=== PATIENT | female | born 1935 | race Caucasian/White ===

== ENCOUNTER 2016-11-26 12:39 | Inpatient (IN) | payer OTHER ==
[~2016-11-26] VITALS: Ht 167.6 cm; Wt 91.6 kg
--- NOTE | ~2016-11-26 | 2DMMODE ---
[facility] [address] [facility] [place] [address] 2 D/M-MODE ECHOCARDIOGRAM Name: VESTAMIKALAINEY Room #: 449-I [facility] IN .R.#: [id number] Admission: 11/26/16 Attend Phys: Ilya Zuleta, Discharge: Date of : 39 Date of Service: 11/27/16 1329 Report #: [id number] THIS REPORT FOR: //name// APPROVED REPORT Study performed: 11/27/2016 11:59:55 EXAM: Comprehensive 2D, Doppler, and color-flow Echocardiogram Patient Location: Bedside Room #: [facility] Status: routine Other Information Study Quality: Adequate Indications Congestive Heart Failure Dyspnea Atrial Fibrillation Hypertension/HDD 2D Dimensions RVDd: 42.26 mm LVEF(%): 39.89 (>50%) IVSd: 13.65 (7-11mm) LVOT Diam: 18.88 (18-24mm) LVDd: 53.28 mm PWd: 13.85 (7-11mm) Ascending Ao: 30.53 (22-36mm) LVDs: 42.84 (25-40mm) Aortic Root: 26.27 mm IVC: 21.00 mm Adams's LVEF: 39.89 % Volumes Left Atrial Volume (Systole) Single Plane 4CH: 93.48 mL Single Plane 2CH: 53.88 mL LA ESV Index: 40.00 mL/m2 Aortic Valve AoV Peak Tyler.: 2.11 m/s AO Peak Gr.: 17.80 mmHg LVOT Max P.62 mmHg AO Mean Gr.: 9.27 mmHg LVOT Mean P.53 mmHg AO V2 Mean: 1.40 m/s LVOT Max V: 1.07 m/s AO V2 VTI: 40.19 cm LVOT Mean V: 0.74 m/s TYRELL (VTI): 1.66 cm2 LVOT V1 VTI: 23.87 cm TYRELL Vmax: 1.43 cm2 SV (LVOT): 66.83 mL [facility] [address] [place] [address] 2 D/M-MODE ECHOCARDIOGRAM Name: SINDYLAINEY Room #: 449-I [facility] IN ..#: [id number] Admission: 11/26/16 Attend Phys: Ilya Zuleta, Discharge: Date of : 39 Date of Service: 11/27/16 1329 Report #: [id number] Mitral Valve E/A Ratio: 1.6 MV Decel. Time: 115.12 ms MV E Max Tyler.: 1.20 m/s MV A Tyler.: 0.75 m/s MV PHT: 33.38 ms IVRT: 87.66 ms Pulmonary Valve PV Peak Tyler.: 1.58 m/s PV Peak Gr.: 13.01 mmHg Pulmonary Vein P Vein S: 0.17 m/s P Vein A: 0.25 m/s P Vein D: 0.49 m/s P Vein A Dur.: 115.3 msec P Vein S/D Ratio: 0.35 Tricuspid Valve TR Peak Tyler.: 3.20 m/s RAP Estimate: 10.00 mmHg TR Peak Gr.: 40.97 mmHg PA Pressure: 51.00 mmHg Left Ventricle The left ventricle is normal size. Mild concentric left ventricular hypertrophy. Left ventricular systolic function is borderline. LVEF is 50-55%. This study is not technically sufficient to allow evaluation of the LV diastolic function. Right Ventricle Right ventricle is at the upper limits of normal. The right ventricular systolic function is normal. Atria Left atrium is dilated. Right atrium is dilated. Aortic Valve The aortic valve is normal in structure. Aortic valve is calcified. Trace aortic regurgitation. Mild aortic stenosis. Mitral Valve The mitral valve is normal in structure. Mild to moderate mitral regurgitation. No evidence of mitral valve stenosis. Tricuspid Valve The tricuspid valve is normal in structure. There is mild tricuspid regurgitation. The right atrial pressure is estimated at 10 mmHg. There is moderate pulmonary hypertension. The estimated PAP was 51 [facility] [address] [place] [address] 2 D/M-MODE ECHOCARDIOGRAM Name: LAINEY CALLAHAN Room #: 449-I ADM IN M.R.#: [id number] Admission: 11/26/16 Attend Phys: Ilya Zuleta, Discharge: Date of : 39 Date of Service: 11/27/16 1329 Report #: [id number]. Pulmonic Valve The pulmonary valve is normal in structure. Trace pulmonic regurgitation. Great Vessels The aortic root is normal in size. IVC is dilated and collapses >50% with inspiration. Pericardium Trace pericardial effusion. <Conclusion> The left ventricle is normal size. LVEF is 50-55%. Left atrium is dilated. Right atrium is dilated. The aortic valve is normal in structure. Aortic valve is calcified. Trace aortic regurgitation. Mild aortic stenosis. The mitral valve is normal in structure. Mild to moderate mitral regurgitation. The tricuspid valve is normal in structure. There is mild tricuspid regurgitation. The right atrial pressure is estimated at 10 mmHg. There is moderate pulmonary hypertension. The estimated PAP was 51 mmHg. <ELECTRONICALLY SIGNED> By: Mohit Ledezma MD 11/27/16 1329 1329 1329 Mohit Ledezma MD /INF
--- NOTE | ~2016-11-26 | H ---
[facility] [place] [address] HISTORY AND PHYSICAL Name: LAINEY CALLAHAN Room #: 449-I ADM IN M.R.#: [id number] Admission: 11/26/16 Attend Phys: Ilya Zuleta MD Discharge: Date of : 39 Report #: [id number] THIS REPORT FOR: //name// CC: Ilya Zuleta DATE OF SERVICE: 11/27/2016 CHIEF COMPLAINT: Shortness of air. HISTORY OF PRESENT ILLNESS: The patient is a 81-year-old female well known to me who presents since she is having increasing shortness of air over the past several days, had difficulty laying flat and was more short of breath. She was unable to lay flat in the . She has had some sharp pain and feeling her heart fluttering. She has no prior history of irregular heartbeats. She does have a murmur she reports. PAST MEDICAL HISTORY: Significant for: 1. Diabetes mellitus. 2. Hypertension. 3. Breast cancer with mastectomy. 4. Hypothyroidism. 5. Venous insufficiency with vein stripping. 6. Recurrent breast cancer in 2008. 7. Hyperlipidemia. MEDICATIONS: Fish oil daily, melatonin 10 mg at bedtime, aspirin 81 mg a day, lisinopril 20 mg a day, simvastatin 40 mg a day, Synthroid 88 mcg a day, trazodone 50 mg a day, Tylenol No. 3 p.r.n., insulin, Levemir at bedtime and NovoLog sliding scale. ALLERGIES: ROXICODONE. SOCIAL HISTORY: Nonsmoker, occasional alcohol. No recreational drugs. She is , lives independently. REVIEW OF SYSTEMS: CONSTITUTIONAL: No fevers or chills, but she does feel weak. HEENT: No headache or visual changes. CHEST: Has shortness of air, no significant cough or sputum production. GASTROINTESTINAL: No nausea, vomiting, diarrhea or constipation. GENITOURINARY: No burning or frequency. EXTREMITIES: No new joint pain. 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 NEUROLOGIC: No new numbness or weakness. PHYSICAL EXAMINATION: [facility] [address] [place] [address] HISTORY AND PHYSICAL Name: LAINEY CALLAHAN Room #: 449-I ADM IN [facility]#: [id number] Admission: 11/26/16 Attend Phys: Ilya Zuleta MD Discharge: Date of : 37 Report #: [id number] VITAL SIGNS: Blood pressure in the ER 166/95, her pulse was 70, but her initial presentation EKG rate was higher, her pulse now is 80. She is afebrile. O2 sat was 95% on 2 liters. GENERAL: She is awake and alert and feels much better, much more short of breath this morning, she is sitting upright. She is on nasal oxygen. HEENT: Her mucous membranes are moist. NECK: Supple, without adenopathy, thyromegaly or bruits. CHEST: Shows left basilar crackles. CARDIOVASCULAR: Irregular rhythm with the rate in the 80s, no S4. There is a 2/6 systolic ejection murmur. ABDOMEN: Soft, nondistended, nontender, no masses. Bowel sounds are active. EXTREMITIES: She has 3+ edema in the left and 1+ in the right. Motor is grossly intact. Sensory is grossly intact. MUSCULOSKELETAL: No new joint swellings or tenderness. LABORATORY DATA: Her EKG showed AFib with a rate of 95, which was new compared to the one in 2009. Sodium 146, potassium 3.0, chloride 106, bicarbonate 32, BUN 26, creatinine 1.4, glucose 119. Troponin 0.2. BNP 25,750, WBCs 8.0, hemoglobin 12.7, hematocrit 37.5, platelet count 151, 64 segs, 22 lymphs, 10 monocytes. Chest x-ray shows bibasilar atelectasis with some infiltrates, small effusions which is new and she has a persistent left basilar infiltrate. ASSESSMENT: 1. New onset atrial fibrillation, rate is already improved, we will continue with the Cardizem, switching to p.o.; however, today as her rate got too low on the drip last night had to be turned off, but will likely need an echocardiogram, Cardiology has been consulted, discussed anticoagulation, we will place her on Eliquis for now. 2. Acute congestive heart failure, systolic, due to the atrial fibrillation, given her IV Lasix will do b.i.d. for today, monitor her electrolytes. She seems to be improving. She does have a chronic edema. 3. Chronic edema, left and right legs get bilateral venous Dopplers. 4. Mild acute kidney injury. We will monitor her electrolytes and renal function. 5. Diabetes mellitus, insulin requiring, will continue her insulin. 6. Hypothyroidism. Continue her thyroid replacement. 7. Insomnia. Continue her trazodone. 8. Degenerative arthritis. Continue the Tylenol with codeine p.r.n. 9. Hyperlipidemia, will hold on simvastatin until discharge, mostly just for convenience for her. 10. Debility. We will get PT and OT. I suspect she will need intermediate on discharge from the acute care in light of the fact she lives independently. She has significant arthritis, has recent surgery on her foot and now has a [facility] [address] [place] [address] HISTORY AND PHYSICAL Name: LAINEY CALLAHAN Room #: 449-I ADM IN .R.#: [id number] Admission: 11/26/16 Attend Phys: Ilya Zuleta MD Discharge: Date of : 39 Report #: [id number] shortness of air, requiring oxygen which she did not need before. The patient is a full code and I have discussed all of the findings with the patient. By: [id number] Ilya Zuleta MD /nt
--- NOTE | ~2016-11-26 | EKG ---
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 ULLOA : 1935 Requested By: Ad Garcia Order Number: [id number] MD: Michel Ovalles Measurements Intervals [place] Rate: 95 P: [place]: QRS: -15 QRSD: 107 T: 153 QT: 363 QTc: 457 Interpretive Statements Atrial fibrillation Ventricular premature complex LVH with secondary repolarization abnormality Compared to ECG 08/27/2008 14:25:30 Ventricular premature complex(es) now present Left ventricular hypertrophy now present Early repolarization now present Sinus rhythm no longer present Electronically Signed On 11-26-2016 21:01:29 CDT by Michel Ovalles [email or web address] <ELECTRONICALLY SIGNED> By: Michel Ovalles MD 11/26/16 2101 1345 1345 Michel Ovalles MD /EPI
--- NOTE | ~2016-11-26 | D ---
[facility] [place] [address] [place] [address] DISCHARGE SUMMARY Name: LAINEY CALLAHAN Room #: 449-I ADM IN M.R.#: [id number] Admission: 11/26/16 Attend Phys: Ilya Zuleta MD Discharge: Date of : 37 Report #: [id number] THIS REPORT FOR: //name// CC: Ilya Zuleta DATE OF DISCHARGE: 12/01/2016. ADMIT DIAGNOSES: New onset atrial fibrillation and dyspnea. DISCHARGE DIAGNOSES: 1. New onset atrial fibrillation. 2. Acute congestive heart failure, second atrial fibrillation 3. Chronic recurrent pleural effusions. 4. Hypertension. 5. Hyperlipidemia. 6. Diabetes mellitus, insulin requiring. 7. Hypothyroidism. 8. Chronic edema. HOSPITAL COURSE: The patient was admitted with new onset shortness of air, found to be in AFib. She was admitted, started on IV Cardizem. Rate was controlled pretty quickly, was switched to oral. She continued to have dyspnea. Cardiology was consulted, we started her on Eliquis as well for stroke prevention. The patient continued to have dyspnea, a VQ scan was ordered and was negative for PE, she does have chronic effusions. She did diurese with Lasix and was much better regarding her dyspnea. She was weak; however, regarding her overall status and felt to be a good candidate for longterm. She was transferred on the for longterm to PT and OT. Her meds are per the discharge medication list. She will be seen in followup by me in 2 weeks, sooner if any issues arise. She will be on a diabetic diet and PT and OT at [facility]. By: 0714 1155 Ilya Zuleta MD /nt
[2016-11-26 12:39] VITALS: BP 166/95
[2016-11-26 14:30] LABS: ABSOLUTE NEUTROPHILS 5.2 thou/uL (1.4-8.2); EOSINOPHILS 2.2 % (0.0-3.0); HEMATOCRIT 37.5 % (37.0-47.0); HEMOGLOBIN 12.7 gm/dL (12.0-15.0); LYMPHOCYTES 22.7 % (24.0-44.0); MCH 31.8 pg (26.0-34.0); MCHC 33.8 g/dL (28.0-37.0); MONOCYTES 9.9 % (1.0-8.0); PLATELET COUNT 151 thou/uL (150-400); POLYS 64.2 % (36.0-66.0); RBC 3.99 mil/uL (4.20-5.00); RDW 13.5 % (10.5-14.5)
[2016-11-26 14:33] LABS: MANUAL DIFF NO
[2016-11-26 14:40] LABS: CALCIUM 8.8 mg/dL (8.5-10.1); CREATININE 1.4 mg/dL (0.6-1.0)
[2016-11-26 14:52] LABS: TROPONIN-I 0.2 ng/mL (<0.04-0.07)
[2016-11-26] MEDS ORDERED: FISH OIL 1,001000 M2 PO (15:09)
[2016-11-26] MEDS ORDERED: MELATONIN5 M1 PO (15:09)
[2016-11-26] MEDS ORDERED: PRINIVIL20 MG PO (15:09)
[2016-11-26] MEDS ORDERED: ASPIR 8181 MG PO (15:09)
[2016-11-26] MEDS ORDERED: SIMVASTATIN40 MG PO (15:10)
[2016-11-26] MEDS ORDERED: TRAZODONE HCL50 MG PO (15:10)
[2016-11-26] MEDS ORDERED: LEVOTHYROXIN0.088 MG PO (15:10)
[2016-11-26] MEDS ORDERED: ACETAMINOPHEN-1 EAC1 PO (15:10)
[2016-11-26] MEDS ORDERED: NOVOLOG100 UNIT/1 SUBQ (15:10)
[2016-11-26] MEDS ORDERED: LEVEMIR SUBQ (15:11)
[2016-11-26 15:53] VITALS: BP 166/80
[2016-11-26 20:00] VITALS: BP 150/65
[2016-11-26 23:41] VITALS: BP 157/63
[2016-11-27 03:18] VITALS: BP 152/68
[2016-11-27 07:16] VITALS: BP 149/91
[2016-11-27 11:10] VITALS: BP 167/80
[2016-11-27 15:21] VITALS: BP 186/91
[2016-11-27 21:08] VITALS: BP 150/79
[2016-11-28 06:12] LABS: CALCIUM 8.2 mg/dL (8.5-10.1); CREATININE 1.5 mg/dL (0.6-1.0); POTASSIUM 3.1 mmol/L (3.5-5.1)
[2016-11-28 06:42] VITALS: BP 131/54
[2016-11-28 15:56] VITALS: BP 151/49
[2016-11-28 19:07] VITALS: BP 161/58
[2016-11-28 20:36] VITALS: BP 134/66
[2016-11-29 04:39] VITALS: BP 144/63
[2016-11-29 07:41] VITALS: BP 149/62
[2016-11-29 11:02] LABS: CALCIUM 8.1 mg/dL (8.5-10.1); CREATININE 1.6 mg/dL (0.6-1.0); POTASSIUM 3.8 mmol/L (3.5-5.1)
[2016-11-29 11:26] VITALS: BP 132/38
[2016-11-29 16:02] VITALS: BP 152/71
[2016-11-29 22:08] VITALS: BP 163/108
[2016-11-30 05:40] VITALS: BP 150/59
[2016-11-30 08:00] VITALS: BP 150/57
[2016-11-30 08:06] LABS: CALCIUM 8.2 mg/dL (8.5-10.1); CREATININE 1.7 mg/dL (0.6-1.0); MAGNESIUM 1.8 mg/dL (1.8-2.4); POTASSIUM 4.2 mmol/L (3.5-5.1)
[2016-11-30 16:05] VITALS: BP 131/100
[2016-11-30 20:09] VITALS: BP 178/61
[2016-12-01 04:11] VITALS: BP 164/61
[2016-12-01 06:14] LABS: CALCIUM 8.2 mg/dL (8.5-10.1); CREATININE 1.7 mg/dL (0.6-1.0); POTASSIUM 4.2 mmol/L (3.5-5.1)
[2016-12-01] MEDS ORDERED: ALBUTEROL2.5 MG/0.5 INH (07:06)
[2016-12-01] MEDS ORDERED: ELIQUIS2.5 MG PO (07:06)
[2016-12-01] MEDS ORDERED: CARDIZEM CD240 MG PO (07:07)
[2016-12-01 10:06] VITALS: BP 185/95
[2016-12-01 11:31] VITALS: BP 175/96
== END 2016-12-01 13:48 | DRG 308 ==
LOC: ER 12:39 → 4W 15:19 → EROBS 15:19 → 4W 16:15
PROVIDERS: Emergency Medicine; Family Medicine; Internal Medicine
DX: I48.0 Paroxysmal atrial fibrillation (principal); I50.41 Acute combined systolic (congestive) and diastolic (congestive) heart failure; N17.9 Acute kidney failure, unspecified; I11.0 Hypertensive heart disease with heart failure; E11.9 Type 2 diabetes mellitus without complications; E03.9 Hypothyroidism, unspecified; E78.00 Pure hypercholesterolemia, unspecified; E78.5 Hyperlipidemia, unspecified; G47.00 Insomnia, unspecified; M19.90 Unspecified osteoarthritis, unspecified site; I27.2 Other secondary pulmonary hypertension; T50.2X5A Adverse effect of carbonic-anhydrase inhibitors, benzothiadiazides and other diuretics, initial encounter; Y92.89 Other specified places as the place of occurrence of the external cause; Z90.710 Acquired absence of both cervix and uterus; Z90.13 Acquired absence of bilateral breasts and nipples; Z85.3 Personal history of malignant neoplasm of breast; Z92.21 Personal history of antineoplastic chemotherapy; Z79.82 Long term (current) use of aspirin; Z79.4 Long term (current) use of insulin; Z79.899 Other long term (current) drug therapy; Z88.8 Allergy status to other drugs, medicaments and biological substances
CPT/HCPCS: 10045; 27001

== ENCOUNTER → 2016-12-24 | Outpatient (CLI) | payer OTHER ==
[~2016-12-24] MED LIST: ACETAMINOPHEN-1 EAC1 PO; ALBUTEROL2.5 MG/0.5 INH; ASPIR 8181 MG PO; CARDIZEM CD240 MG PO; ELIQUIS2.5 MG PO; FISH OIL 1,001000 M2 PO; LEVEMIR SUBQ; LEVOTHYROXIN0.088 MG PO; MELATONIN5 M1 PO; NOVOLOG100 UNIT/1 SUBQ; PRINIVIL20 MG PO; SIMVASTATIN40 MG PO; TRAZODONE HCL50 MG PO
== END ==
LOC: HYPER 07:11
DX: L89.152 Pressure ulcer of sacral region, stage 2 (principal); E11.622 Type 2 diabetes mellitus with other skin ulcer; L98.491 Non-pressure chronic ulcer of skin of other sites limited to breakdown of skin; E11.51 Type 2 diabetes mellitus with diabetic peripheral angiopathy without gangrene; I11.0 Hypertensive heart disease with heart failure; I50.9 Heart failure, unspecified; E78.5 Hyperlipidemia, unspecified; M81.0 Age-related osteoporosis without current pathological fracture; E03.9 Hypothyroidism, unspecified; I89.0 Lymphedema, not elsewhere classified; Z98.49 Cataract extraction status, unspecified eye; Z89.421 Acquired absence of other right toe(s); Z96.659 Presence of unspecified artificial knee joint; Z87.891 Personal history of nicotine dependence; Z72.89 Other problems related to lifestyle; Z85.3 Personal history of malignant neoplasm of breast

== ENCOUNTER 2021-01-21 14:00 | Inpatient (IN) | payer OTHER ==
[~2021-01-21] VITALS: Ht 167.6 cm; Wt 72.6 kg
[2021-01-21 14:17] VITALS: BP 154/56
[2021-01-21 14:24] LABS: HEMOGLOBIN 11.4 gm/dL (12.0-15.0); MCH 30.4 pg (26.0-34.0); MCHC 32.6 g/dL (28.0-37.0); MCV 93.2 fL (80.0-100.0); PLATELET COUNT 280 thou/uL (150-400); RBC 3.75 mil/uL (4.20-5.00); RDW 13.9 % (10.5-14.5); WBC 20.2 thou/uL (4.0-11.0)
[2021-01-21 14:36] LABS: ANION GAP 6 mmol/L (7-16); BUN 88 mg/dL (7-18); CALCIUM 8.2 mg/dL (8.5-10.1); CHLORIDE 105 mmol/L (98-107); CO2 29 mmol/L (21-32); CREATININE 2.8 mg/dL (0.6-1.0); GLUCOSE 175 mg/dL (74-106); POTASSIUM 4.2 mmol/L (3.5-5.1); SODIUM 140 mmol/L (136-145)
--- NOTE | 2021-01-21 14:42 | EKG ---
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 : 1935 Requested By: Milad Mathur Order Number: [id number] MD: Molina Orona Measurements Intervals [place] Rate: 79 P: [place]: 285 QRS: -16 QRSD: 111 T: 89 QT: 409 QTc: 469 Interpretive Statements Atrial-paced complexes Prolonged [place] interval Low voltage, extremity leads Compared to ECG 11/26/2016 13:45:47 First degree AV block now present Low QRS voltage now present Atrial fibrillation no longer present Ventricular premature complex(es) no longer present Left ventricular hypertrophy no longer present Early repolarization no longer present Electronically Signed On 01-21-2021 14:42:39 CDT by Molina Orona [email or web address] <ELECTRONICALLY SIGNED> By: Molina Orona MD, [facility] 01/21/21 1442 1403 1403 Molina Orona MD, [facility] /EPI
[2021-01-21 14:45] LABS: ALBUMIN 1.8 g/dL (3.4-5.0); LIPASE 84 U/L (73-393); SGOT 31 U/L (15-37); SGPT 23 U/L (14-59); TOTAL BILIRUBIN 0.6 mg/dL (0.2-1.0); TOTAL PROTEIN 5.3 g/dL (6.4-8.2); TROPONIN-I <0.06 ng/mL (<0.06)
[2021-01-21 14:49] LABS: ABSOLUTE NEUTROPHILS 18.8 thou/uL (1.4-8.2)
[2021-01-21 14:50] LABS: PLATELET ESTIMATE NORMAL
[2021-01-21 15:59] LABS: URINE BILIRUBIN NEGATIVE (Negative); URINE BLOOD 2+ (Negative); URINE CLARITY SL CLOUDY; URINE COLOR YELLOW; URINE GLUCOSE-RANDOM* NEGATIVE (Negative); URINE KETONES NEGATIVE (Negative); URINE PROTEIN (DIPSTICK) NEGATIVE (Negative); URINE UROBILINOGEN 0.2 E.U./dl (0.2-1.0)
[2021-01-21 16:07] LABS: URINE LEUKOCYTES-REFLEX 2+ (Negative); URINE NITRITE-REFLEX POSITIVE (Negative)
[2021-01-21 16:19] LABS: CASTS None Seen /LPF (None Seen); SQUAMOUS 0-3 Few /LPF (0-3); URINE WBC-REFLEX >25 Many /HPF (0-5)
[2021-01-21 16:20] LABS: AMORPHOUS URATES Many /LPF (None Seen)
--- NOTE | 2021-01-21 17:30 | NUR ---
86 year old female presenting to the ED with complaints of left sided chest pain that worsens with exertion and deep breaths. While in the ED patient found to be negative Covid and reports vaccination. Patient admitted with CHF and UTI. Patient currently resides at [facility] and lists daughter Rosy Bruno as her next of kin and can be reached at [phone]. Upon last admission in 2017 Dr. Zuleta had been listed as the patients PCP. CM will follow for discharge needs upon medical evaluation and plan of care has been established.
[2021-01-21 19:56] VITALS: BP 151/58
[2021-01-21 20:45] VITALS: BP 120/50
[2021-01-22 03:24] LABS: ABSOLUTE NEUTROPHILS 16.4 thou/uL (1.4-8.2); LYMPHOCYTES 5.7 % (24.0-44.0); MCH 31.1 pg (26.0-34.0); MCHC 33.4 g/dL (28.0-37.0); MCV 93.1 fL (80.0-100.0); MONOCYTES 4.3 % (1.0-8.0); PLATELET COUNT 249 thou/uL (150-400); RBC 3.23 mil/uL (4.20-5.00); RDW 14.1 % (10.5-14.5); WBC 18.6 thou/uL (4.0-11.0)
[2021-01-22 04:04] LABS: ALBUMIN 1.7 g/dL (3.4-5.0); CALCIUM 7.5 mg/dL (8.5-10.1); CREATININE 2.5 mg/dL (0.6-1.0); POTASSIUM 4.8 mmol/L (3.5-5.1); TOTAL BILIRUBIN 0.5 mg/dL (0.2-1.0); TOTAL PROTEIN 4.6 g/dL (6.4-8.2)
[2021-01-22 04:45] VITALS: BP 136/54
[2021-01-22 08:35] VITALS: BP 132/49
--- NOTE | 2021-01-22 11:19 | NUR ---
Nutrition: consult for "wounds," pt noted to have abrasions. Pt admit with chest pain, Dx: VIANCA, UTI. Other hx: CKD, A-fib, HTN, DM. Pt noted to be A/O x 1, unavailable for interview this am. Nsg reported pt ate well at breakfast, intake est 75%, no concerns reported. No wt hx available. BUN 87, Cr 2.5, albumin 1.7. IVF and other meds reviewed. Pt does not appear at significant nutrition risk at this time.
[2021-01-22 11:25] VITALS: BP 131/45
--- NOTE | 2021-01-22 12:47 | NUR ---
FAXED CLINICAL UPDATES TO [facility]. WILL CONFIRM THEY RECEIVED. [place] P [phone]; FAX [phone]
[2021-01-22 15:24] VITALS: BP 136/45
--- NOTE | 2021-01-22 15:34 | 2DMMODE ---
[facility] [place] [address] 2 D/M-MODE ECHOCARDIOGRAM Name: LAINEY CALLAHAN Room #: 209-P ADM IN M.R.#: [id number] Admission: 01/21/21 Attend Phys: Du Andrade MD Discharge: Date of : 37 Report #: [id number] THIS REPORT FOR: cc: LOUISA OLIVAS Physician not on staff Mohit Ledezma MD ~ APPROVED REPORT Study performed: 01/22/2021 14:31:50 EXAM: Comprehensive 2D, Doppler, and color-flow Echocardiogram Patient Location: Bedside Room #: 209 Status: routine BSA: 1.85 HR: 64 bpm BP: 131/45 mmHg Rhythm: NSR Other Information Study Quality: Technically Limited/poor apical windows. Technically limited study due to patient unable to move left arm for apical window.. Indications Chronic Afib, CHF, chest pain. Hx: , HTN, HLP, DM, left mastectomy. 2D Dimensions IVSd: 12.59 (7-11mm) LVOT Diam: 18.86 (18-24mm) LVDd: 60.57 mm PWd: 9.43 (7-11mm) Ascending Ao: 33.85 (22-36mm) LVDs: 50.95 (25-40mm) Left Atrium: 50.03 (27-40mm) Aortic Root: 27.56 mm Aortic Valve AoV Peak Tyler.: 2.26 m/s AO Peak Gr.: 20.35 mmHg LVOT Max P.21 mmHg AO Mean Gr.: 7.84 mmHg AO V2 Mean: 1.28 m/s LVOT Max V: 0.74 m/s AO V2 VTI: 43.21 cm TYRELL Vmax: 0.92 cm2 [facility] [email or web address] [place] [address] 2 D/M-MODE ECHOCARDIOGRAM Name: LAINEY CALLAHAN Room #: 209-P [facility] IN ..#: [id number] Admission: 01/21/21 Attend Phys: Du Andrade MD Discharge: Date of : 37 Report #: [id number] Mitral Valve E/A Ratio: 1.9 MV Decel. Time: 152.81 ms MV E Max Tyler.: 0.90 m/s MV A Tyler.: 0.48 m/s MV PHT: 44.31 ms Pulmonary Valve PV Peak Tyler.: 1.03 m/s PV Peak Gr.: 4.20 mmHg Tricuspid Valve TR Peak Tyler.: 3.05 m/s RAP Estimate: 8.00 mmHg TR Peak Gr.: 37.15 mmHg PA Pressure: 45.00 mmHg Left Ventricle Left ventricle is mildly dilated. Mild concentric left ventricular hypertrophy. Left ventricular systolic function is moderately decreased. LVEF is 35-40%. Right Ventricle Right ventricle is not well visualized. Atria Biatrial enlargement. Aortic Valve Aortic valve is trileaflet; thickened and calcified. Mild aortic regurgitation. Moderate aortic stenosis. Mitral Valve The mitral valve is normal in structure. There is mitral annular calcification. Moderate to severe mitral regurgitation Tricuspid Valve The tricuspid valve is normal in structure. Mild tricuspid regurgitation. Estimated PAP is 45mmHg. Pulmonic Valve The pulmonary valve is normal in structure. Trace pulmonic regurgitation. Great Vessels The aortic root is normal in size. IVC is normal in size and partially collapses with inspiration. [facility] [email or web address] [place] [address] 2 D/M-MODE ECHOCARDIOGRAM Name: NILSARICKYLAINEY Room #: 209-P [facility] IN M.R.#: [id number] Admission: 01/21/21 Attend Phys: Du Andrade MD Discharge: Date of : 37 Report #: [id number] Pericardium Small pericardial effusion. Bilateral pleural effusions. <Conclusion> Left ventricle is mildly dilated. Mild concentric left ventricular hypertrophy. LVEF is 35-40%. Right ventricle is not well visualized. Biatrial enlargement. Aortic valve is trileaflet; thickened and calcified. Mild aortic regurgitation. The mitral valve is normal in structure. There is mitral annular calcification. Moderate to severe mitral regurgitation The tricuspid valve is normal in structure. Mild tricuspid regurgitation. Estimated PAP is 45mmHg. The pulmonary valve is normal in structure. Trace pulmonic regurgitation. The aortic root is normal in size. Small pericardial effusion. Bilateral pleural effusions. <ELECTRONICALLY SIGNED> By: Mohit Ledezma MD 01/22/21 1534 1534 1534 Mohit Ledezma MD /INF
--- NOTE | 2021-01-22 17:11 | NUR ---
Patient sleeping. Patient admits from [facility]. Called and sp with dtr in law and reviewed role of casemgt. Attempted to confirm plan for return to [facility] but dtr in law reports to call her . Left message with spouse. Sp with Ezio who reports family/patient was in process of meeting with [facility]. Updated cristy Holguin following.
[2021-01-22 19:44] VITALS: BP 135/60
--- NOTE | 2021-01-22 20:00 | NUR ---
ASSESSMENT CHARTED . MEDS PER AUG - NO CO'S OF PAIN OR NAUSEA. PT ON BEDREST - IS NON AMBULATORY AND THE FACILTIY USES A LIFT TO GET PT UP. PT WITH ODEMA TO UPPER EXTREMITIES CHARTED - MEPILEX DRESSING REPLACED TO DRY AREA ON LEFT HEEL. PT HOLLI DIET AND FLUIDS. SEEN BY PHYS AND OCC THERAPY TODAY. PT WITH NO CO'S AT THE PRESENT TIME.
[2021-01-23 04:10] VITALS: BP 149/50
[2021-01-23 08:03] VITALS: BP 140/62
[2021-01-23 09:34] LABS: ALBUMIN 1.9 g/dL (3.4-5.0); CALCIUM 8.5 mg/dL (8.5-10.1); CREATININE 2.5 mg/dL (0.6-1.0); PHOSPHORUS 4.3 mg/dL (2.6-4.7); POTASSIUM 4.2 mmol/L (3.5-5.1)
[2021-01-23 09:38] LABS: BASOPHILS 0.8 % (0.0-2.0); EOSINOPHILS 1.8 % (0.0-3.0); HEMATOCRIT 33.7 % (37.0-47.0); LYMPHOCYTES 6.7 % (24.0-44.0); MCH 30.7 pg (26.0-34.0); MCHC 32.6 g/dL (28.0-37.0); MCV 94.3 fL (80.0-100.0); MONOCYTES 5.8 % (1.0-8.0); PLATELET COUNT 263 thou/uL (150-400); POLYS 84.9 % (36.0-66.0); RBC 3.58 mil/uL (4.20-5.00); RDW 13.9 % (10.5-14.5); WBC 16.5 thou/uL (4.0-11.0)
--- NOTE | 2021-01-23 10:57 | NUR ---
WOUND CONSULT; THIS PATIENT HAS AN UNSTAGABLE PRESSURE INJURY TO THE SACRUM THAT MEASURES 4 X 4 X 0. UNSTABLE ESCHAR PRESENT. NO ODOR SOME PAIN FOR THE PATIENT. RECCOMMENDATIONS; -ADD A LOW AIRLOSS PUMP. -APPLY A SACRAL FOAM FOR NOW UNTIL ASSESSED BY DR MENSAH. -TURN Q2H/PRN RN PRESENT
[2021-01-23 11:14] VITALS: BP 128/41
[2021-01-23 15:24] VITALS: BP 129/43
--- NOTE | 2021-01-23 15:30 | NUR ---
FAXED CLINICAL UPDATES, DNR FORM AND NEGATIVE COVID RESULT (01/21/21) TO [facility]. WILL CONTACT MAYO/LIAISON TO CONFIRM THEY RECEIVED AND NEED ANY ADDITIONAL INFORMATION. [facility] P [phone]; FAX [phone]; M [phone]
--- NOTE | 2021-01-23 16:05 | NUR ---
Spoke with patient son. He reports patient is a DNR and requests [facility] fax DNR form. Requested form and placed on chart. Son reports they met with [facility] hospice day before admission to hospital. They plan to have hospice at al when return to [facility]. Rec order for hospice eval and tx. Sp with Dedrick with [facility] hospice who will visit with patient in am. She confirms they met prior to admission. clinical faxed to [facility] and [facility]. Dr Andrade sp with Rn and patient is now a DNR. Cont fo follow for dc planning.
[2021-01-23 19:50] VITALS: BP 122/62
[2021-01-24 03:40] LABS: ALBUMIN 1.9 g/dL (3.4-5.0); CALCIUM 8.2 mg/dL (8.5-10.1); CREATININE 2.5 mg/dL (0.6-1.0); PHOSPHORUS 4.4 mg/dL (2.5-4.9); POTASSIUM 4.3 mmol/L (3.5-5.1)
[2021-01-24 05:11] VITALS: BP 131/52
[2021-01-24 08:00] VITALS: BP 124/79
--- NOTE | 2021-01-24 09:44 | NUR ---
SEND CLINICAL UPDATES, DNR FORM AND NEGATIVE COVID RESULT (01/21/21) TO [facility]. WILL CONFIRM WITH BRE/LIAISON THAT THEY RECEIVED. [place]/AESTHETICS INSTRUCTOR SPOKE TO BRE REGARDING POSSIBLE DISCHARGE TODAY WITH [facility]. NOTED ON FACE SHEET. [place]ARY [place] P [phone]; FAX [phone]
[2021-01-24 11:00] VITALS: BP 121/50
[2021-01-24 12:00] VITALS: BP 127/34
[2021-01-24 13:05] LABS: HEMATOCRIT 30.8 % (37.0-47.0); MCH 30.4 pg (26.0-34.0); MCHC 32.4 g/dL (28.0-37.0); MCV 93.8 fL (80.0-100.0); PLATELET COUNT 253 thou/uL (150-400); RBC 3.28 mil/uL (4.20-5.00); WBC 20.2 thou/uL (4.0-11.0)
[2021-01-24] MEDS ORDERED: METOPROLOL SUCC50 MG PO (13:35)
[2021-01-24] MEDS ORDERED: DAKIN'S473 M2 IRRIG (13:36)
[2021-01-24] MEDS ORDERED: LASIX 20 MG TAB20 MG PO (13:37)
[2021-01-24] MEDS ORDERED: ACIDOPHILUS1 EAC4 PO (13:37)
[2021-01-24] MEDS ORDERED: CEPHALEXIN500 MG PO (13:39)
[2021-01-24] MEDS ORDERED: MIRALAX119 GM PO (13:41)
[2021-01-24 13:59] LABS: ABSOLUTE NEUTROPHILS 19.2 thou/uL (1.4-8.2); PLATELET ESTIMATE NORMAL
[2021-01-24 16:00] VITALS: BP 129/51
--- NOTE | 2021-01-24 16:23 | NUR ---
REPORT CALLED TO JOHN RETANA AT [facility]. NO QUESTIONS OR CONCERNS AT TIME OF REPORT.
--- NOTE | 2021-01-24 18:29 | NUR ---
TRANSPORTATION ARRANGED WITH [facility] PERSON BY [facility] AT 19:00. TRANSPORTATION DELAYED BECAUSE OF [place]. FAXED DISCHARGE ORDERS, SUMMARY, WOUND CARE PROGRESS NOTES, ORDER AND UPDATED COVID RESULT (01/24/21). CONFIRMED WITH MAVIS ASHPAPAMIKA (SON) TO NOTIFY OF PATIENT'S DISCHARGE THIS EVENING. [facility] P [phone]; FAX [phone]; PATIENT TO GO TO ROOM [address] [place] [address] P [phone]; FAX [phone]; MAIN [phone]
--- NOTE | 2021-01-24 19:35 | NUR ---
AT 1918 PATIENT DISCHARGED TO FACILITY PER [facility]. STABLE AT TIME OF TRANSFER. FACILTIY CALLED AND NOTIFIED.
--- NOTE | 2021-01-27 08:02 | HC ---
[facility] [place] [address] CONSULTATION Name: LAINEY CALLAHAN Room #: 209-P [facility] M.R.#: [id number] Admission: 01/21/21 Attend Phys: Du Andrade MD Discharge: 01/24/21 Date of : 39 Report #: [id number] THIS REPORT FOR: cc: LOUISA OLIVAS Physician not on staff Jamie Rock MD ~ DATE OF SERVICE: 01/23/2021 CHIEF COMPLAINT: Sacral pressure ulceration. HISTORY OF PRESENT ILLNESS: This is an 86-year-old female patient who lives in a nursing care facility at [facility]. She was brought to the hospital with complaints of chest pain and other vague symptoms. She was noted to have a sacral pressure ulcer and I have been asked to see her in this regard. The patient really cannot answer most questions and is not entirely sure that she has a pressure ulcer and lacks significant insight into her current condition. ALLERGIES: OXYCODONE. MEDICATIONS: Include albuterol, Eliquis, Cardizem, fish oil, melatonin, aspirin, Prinivil, Zocor, Synthroid, Desyrel, NovoLog and Levemir. PAST MEDICAL HISTORY: Positive for history of type 2 diabetes mellitus, history of hypertension, previous mastectomy, hysterectomy, hypothyroidism, previous , and hyperlipidemia. SOCIAL HISTORY: The patient has a history of alcohol use. No tobacco use. FAMILY HISTORY: Unknown. REVIEW OF SYSTEMS: Not obtainable due to the patient's dementia. PHYSICAL EXAMINATION: VITAL SIGNS: At this time include temperature 36.6, pulse 60, respiratory rate of 18, and blood pressure 128/41. GENERAL: This is a chronically ill-appearing female patient, who appears to be in minimal distress. HEAD: Normocephalic. Nose and throat clear. NECK: Supple. LUNGS: Diminished. HEART: Irregular. ABDOMEN: Soft and bowel sounds are present. BACK: Sacral region demonstrates a fairly large circular ulcer to the sacral region with some surrounding erythema and induration. There is no fluctuance obviously at this time. LOWER EXTREMITIES: Without clubbing or cyanosis. [facility] [address] [place] [address] CONSULTATION Name: SINDYLAINEY M Room #: 209-P [facility] ..#: [id number] Admission: 01/21/21 Attend Phys: Du Andrade MD Discharge: 01/24/21 Date of : 39 Report #: [id number] NEUROLOGIC: The patient moves symmetrically. However, she is disoriented. LABORATORY DATA: Include sodium 138, potassium 4.2, chloride 105, CO2 of 25, BUN 89, creatinine 2.5, glucose 150. Albumin is very low at 1.9. White blood cell count at 16.5, hemoglobin 11.0, and hematocrit 33.7. CLINICAL IMPRESSION: 1. Unstageable sacral pressure ulceration with some surrounding erythema. 2. Type 2 diabetes mellitus. 3. Hypertension. 4. Hypothyroidism. 5. Paroxysmal atrial fibrillation. 6. History of breast cancer. 7. Severe protein-calorie malnutrition with albumin 1.9. RECOMMENDATIONS: At this point in time, we will recommend simple dressings at the present time with Dakin's moist gauze. She will need low air loss mattress and q. 2 hour turning and repositioning. The patient is in need of aggressive nutritional support if we would expect to see any type of wound healing. A lengthy discussion was held with the patient's son and discussion of various levels of care including surgical debridement of the sacral ulcer, possible diverting colostomy and PEG tube placement. The son at this time is indicated he does not wish for her to have aggressive care and does not wish for her to have any sort of surgical intervention and we have discussed that lacking more aggressive care and/or debridement that the approach would be a more palliative approach at least with regard to the wound healing and it would be unlikely that this wound, meeting her sacral pressure ulcer would heal with local care, especially with the severe level of malnutrition that she has. At this point once again, we will just use a Dakin's moist gauze dressing and turning, repositioning, nutrition as she will tolerate. I appreciate being asked to see her in consultation. <ELECTRONICALLY SIGNED> By: Jamie Rock MD 01/27/21 [id number] Jamie Rock MD /nt
== END 2021-01-24 19:20 | disposition hospice, home (50) | DRG 682 ==
LOC: ER 14:00 → EROBS 16:41 → 2N 16:41
PROVIDERS: Emergency Medicine; Internal Medicine; Internal Medicine Nephrology; ADMIT Internal Medicine; ATTEND Internal Medicine
PROC: 4B02XSZ Measurement of Cardiac Pacemaker, External Approach (ICD-10-PCS; principal; 2021-01-22)
DX: N17.0 Acute kidney failure with tubular necrosis (principal); E43 Unspecified severe protein-calorie malnutrition; J18.9 Pneumonia, unspecified organism; I13.0 Hypertensive heart and chronic kidney disease with heart failure and stage 1 through stage 4 chronic kidney disease, or unspecified chronic kidney disease; N39.0 Urinary tract infection, site not specified; I50.42 Chronic combined systolic (congestive) and diastolic (congestive) heart failure; I47.1 Supraventricular tachycardia; I48.20 Chronic atrial fibrillation, unspecified; J98.11 Atelectasis; N18.4 Chronic kidney disease, stage 4 (severe); E03.9 Hypothyroidism, unspecified; E78.00 Pure hypercholesterolemia, unspecified; E78.5 Hyperlipidemia, unspecified; L89.150 Pressure ulcer of sacral region, unstageable; I48.0 Paroxysmal atrial fibrillation; M19.90 Unspecified osteoarthritis, unspecified site; E66.01 Morbid (severe) obesity due to excess calories; E11.22 Type 2 diabetes mellitus with diabetic chronic kidney disease; R53.81 Other malaise; F32.9 Major depressive disorder, single episode, unspecified; I49.5 Sick sinus syndrome; F03.90 Unspecified dementia, unspecified severity, without behavioral disturbance, psychotic disturbance, mood disturbance, and anxiety; G47.00 Insomnia, unspecified; B96.1 Klebsiella pneumoniae [K. pneumoniae] as the cause of diseases classified elsewhere; Z20.822 Contact with and (suspected) exposure to COVID-19; Z90.13 Acquired absence of bilateral breasts and nipples; Z88.6 Allergy status to analgesic agent; Z68.25 Body mass index [BMI] 25.0-25.9, adult; Z85.3 Personal history of malignant neoplasm of breast; Z79.82 Long term (current) use of aspirin; Z79.899 Other long term (current) drug therapy
CPT/HCPCS: 10081